=== PATIENT | male | born 1935 | race Caucasian/White ===

== ENCOUNTER → 2018-02-07 07:39 | Outpatient (CLI) | payer MEDICARE, SELFPAY ==
--- NOTE | 2018-02-07 07:56 | VDUE_ITS ---
Reason For Study: SWELLING Left Proximal Left jugular vein is spontaneous, widely patent, phasic, with no intraluminal echogenicity noted. Left subclavian vein is spontaneous, widely patent, phasic, with no intraluminal echogenicity noted. Left Arm Left axillary vein is spontaneous, patent, phasic, competent, compressible and demonstrates augmentation. Left brachial vein is compressible. Left cephalic vein is compressible. Left basilic vein is compressible. Left Lower Arm Left radial vein is compressible. Left ulnar vein is compressible. Interpretation Summary Deep veins of the left upper extremity are patent and compressible segmentally. There is no evidence of deep vein thrombosis. The superficial veins of the left upper extremity, the basilic and cephalic veins, are patent and compressible. There is no evidence of left upper extremity superficial thrombophlebitis involving the veins imaged. Ordering Physician: Javier Davis Referring Physician: Javier Davis Performed By: Delores Kohli, STEPHANIE, RVT ???
== END ==
PROVIDERS: Family Provider Physician Assistant; PCP Physician Assistant; Referring Provider Physician Assistant; Visit Provider Physician Assistant
DX: M79.89 Other specified soft tissue disorders (principal); S67.22XD Crushing injury of left hand, subsequent encounter
CPT/HCPCS: 93971